=== PATIENT | male | born 1995 | race Caucasian/White ===

== ENCOUNTER 2022-06-19 17:02 | Emergency (ER) | payer OTHER ==
[~2022-06-19] VITALS: Ht 172.7 cm; Wt 95.3 kg
[~2022-06-19 17:02] MED LIST: MELO-174 PO; VITB12 PO
[2022-06-19 17:25] VITALS: BP 128/86
[2022-06-19] MEDS ORDERED: KETOROLAC 30 MG/ML VIAL IM ONE (17:55)
[2022-06-19] MEDS ORDERED: IBUP-2213 PO (18:31)
[2022-06-19] MEDS ORDERED: METH-1681 PO (18:31)
[2022-06-19 18:51] VITALS: BP 128/86
--- NOTE | 2022-06-19 18:51 | NUR ---
Patient discharged with v/s stable. Written and verbal after care instructions given and explained. Patient alert, oriented and verbalized understanding of instructions. Ambulatory with steady gait. All questions addressed prior to discharge. ID band removed. Patient advised to follow up with PMD. Rx of ROBAXIN given. Patient educated on indication of medication including possible reaction and side effects. Opportunity to ask questions provided and answered.
[2022-06-19] MEDS ORDERED: KETOROLAC 30 MG/ML VIAL ONE (19:25)
== END 2022-06-19 18:58 | disposition home or self-care (01) ==
LOC: MED 17:02
DX: M54.50 Low back pain, unspecified (principal)
CPT/HCPCS: 99283; J1885

== ENCOUNTER 2023-11-03 06:49 | Emergency (ER) | payer OTHER ==
[~2023-11-03] VITALS: Ht 172.7 cm; Wt 104.3 kg
[~2023-11-03 06:49] MED LIST changes: +IBUP-2213 PO; +METH-1681 PO
[2023-11-03 07:21] VITALS: PULSE 84; RESP 18; TEMP 98.3; O2SAT 98
[2023-11-03] MEDS ORDERED: CEPH-588 PO (08:19)
[2023-11-03] MEDS ORDERED: IBUP-2213 PO (08:19)
[2023-11-03] MEDS ORDERED: SULF-59 PO (08:19)
[2023-11-03 08:29] VITALS: BP 121/72; PULSE 77; O2SAT 97
== END 2023-11-03 08:29 | disposition home or self-care (01) ==
LOC: MED 06:49
DX: L03.115 Cellulitis of right lower limb (principal); Z79.899 Other long term (current) drug therapy
CPT/HCPCS: 99284

== ENCOUNTER 2023-11-05 10:50 | Emergency (ER) | payer OTHER ==
[~2023-11-05] VITALS: Ht 172.7 cm; Wt 104.3 kg
[~2023-11-05 10:50] MED LIST changes: +CEPH-588 PO; +SULF-59 PO
[2023-11-05 11:01] VITALS: BP 132/90; PULSE 90; RESP 18; TEMP 98.5; O2SAT 98
[2023-11-05] MEDS: KETOROLAC 30 MG/ML VIAL IVP ONE (11:55)
[2023-11-05 12:08] LABS: BASOPHILS % (AUTO) 0.3 % (0.0-2.0); EOSINOPHILS # (AUTO) 0.1 K/uL (0-0.4); HEMATOCRIT 40.7 % (36-52); MONOCYTES # (AUTO) 0.7 K/uL (0.8-1.0); RED BLOOD CELL COUNT(AUTO) 4.64 MIL/uL (4.20-6.10)
[2023-11-05 12:20] LABS: ANION GAP 14.1 (8-16); CARBON DIOXIDE 25.8 mmol/L (21-32); CREATININE 0.9 mg/dL (0.6-1.3); EOSINOPHILS % (AUTO) 0.8 % (0.0-4.0); HEMOGLOBIN 14.2 g/dL (12.0-18.0); LYMPHOCYTES # (AUTO) 1.6 K/uL (2.0-11.5); LYMPHOCYTES % (AUTO) 15.3 % (20.5-51.1); MEAN CORPUSCULAR HEMOGLOBIN 31 pg (27-31); MEAN CORPUSCULAR HGB CONC 35 g/dL (33-37); MEAN CORPUSCULAR VOLUME 87.6 fL (80-94); NEUTROPHILS % (AUTO) 76.6 % (42.2-75.2); PLATELET COUNT (AUTO) 192 K/uL (140-450); POTASSIUM 3.9 mmol/L (3.5-5.1); RED CELL DISTRIBUTION WIDTH 14.1 % (11.6-13.7); WHITE BLOOD COUNT (AUTO) 10.4 K/uL (4.8-10.8)
[2023-11-05 12:22] LABS: ALANINE AMINOTRANSFERASE 30 U/L (12-78); ALBUMIN 3.7 g/dL (3.4-5.0); ALKALINE PHOSPHATASE 84 U/L (50-136); ASPARTATE AMINOTRANSFERASE 19 U/L (15-37); BILIRUBIN,DIRECT 0.2 mg/dL (0.0-0.3); CREATINE KINASE, TOTAL 417 U/L (39-308); TOTAL BILIRUBIN 0.9 mg/dL (0.0-1.0); TOTAL PROTEIN, SERUM 7.2 g/dL (6.4-8.2)
[2023-11-05 12:24] LABS: LACTIC ACID 1.2 mmol/L (0.4-2.0)
[2023-11-05 12:27] LABS: CALCIUM 8.7 mg/dL (8.5-10.1)
[2023-11-05] MEDS: LEVOFLOXACIN 500 MG/D5W PREMIX 100 ML IV ONE (12:39)
[2023-11-05] MEDS ORDERED: VANCOMYCIN 1,000 MG VIAL ONE (12:57)
[2023-11-05] MEDS: VANCOMYCIN 1,000 MG in DEXTROSE 5% 250 ML IV ONE (13:09)
[2023-11-05] MEDS ORDERED: LEVO750T75 PO (13:42)
[2023-11-05] MEDS ORDERED: HYDR-5071 PO (13:42)
[2023-11-05 14:47] VITALS: BP 111/73; PULSE 77; RESP 18; TEMP 97.7; O2SAT 98
== END 2023-11-05 14:47 | disposition home or self-care (01) ==
LOC: MED 10:50
DX: L03.115 Cellulitis of right lower limb (principal); Z79.1 Long term (current) use of non-steroidal anti-inflammatories (NSAID); Z79.899 Other long term (current) drug therapy
CPT/HCPCS: 36415; 73590; 80048; 80076; 82550; 82553; 83605; 85025; 87040; 96365; 96366; 96368; 96375; 99285; J1885; J1956; J3370

== ENCOUNTER 2024-05-07 20:52 | Emergency (ER) | payer OTHER ==
[~2024-05-07] VITALS: Ht 172.7 cm; Wt 90.7 kg
[~2024-05-07 20:52] MED LIST changes: +HYDR-5071 PO; +LEVO750T75 PO
[2024-05-07 20:56] VITALS: BP 146/83; PULSE 49; RESP 16; TEMP 97.6; O2SAT 98
[2024-05-07 21:30] VITALS: TEMP 97.6
[2024-05-07] MEDS: NACL 0.9% 1,000 ML IV ONE (23:27)
[2024-05-07] MEDS: FAMOTIDINE 20 MG/2 ML VIAL IVP ONE (23:28)
[2024-05-07] MEDS: ONDANSETRON 4 MG/2 ML VIAL IVP ONE (23:28)
[2024-05-07 23:30] VITALS: BP 116/67; PULSE 55; RESP 16; O2SAT 98
[2024-05-07 23:31] LABS: EOSINOPHILS # (AUTO) 0.1 K/uL (0-0.4); EOSINOPHILS % (AUTO) 1.2 % (0.0-4.0); HEMATOCRIT 45.5 % (36-52); HEMOGLOBIN 15.6 g/dL (12.0-18.0); LYMPHOCYTES # (AUTO) 0.7 K/uL (2.0-11.5); MEAN CORPUSCULAR HEMOGLOBIN 31 pg (27-31); MEAN CORPUSCULAR HGB CONC 34 g/dL (33-37); MEAN CORPUSCULAR VOLUME 89.5 fL (80-94); MONOCYTES # (AUTO) 0.2 K/uL (0.8-1.0); MONOCYTES % (AUTO) 2.2 % (1.7-9.3); NEUTROPHILS # (AUTO) 8.1 K/uL (1.8-7.7); NEUTROPHILS % (AUTO) 88.6 % (42.2-75.2); PLATELET COUNT (AUTO) 227 K/uL (140-450); RED BLOOD CELL COUNT(AUTO) 5.09 MIL/uL (4.20-6.10); RED CELL DISTRIBUTION WIDTH 14.1 % (11.6-13.7); WHITE BLOOD COUNT (AUTO) 9.1 K/uL (4.8-10.8)
[2024-05-07 23:40] LABS: CALCIUM 8.8 mg/dL (8.5-10.1); CREATININE 0.8 mg/dL (0.6-1.3)
[2024-05-07 23:44] LABS: ALANINE AMINOTRANSFERASE 34 U/L (12-78); ALBUMIN 3.9 g/dL (3.4-5.0); ALKALINE PHOSPHATASE 101 U/L (50-136); ASPARTATE AMINOTRANSFERASE 21 U/L (15-37); BILIRUBIN,DIRECT 0.3 mg/dL (0.0-0.3); TOTAL BILIRUBIN 0.9 mg/dL (0.0-1.0); TOTAL PROTEIN, SERUM 7.4 g/dL (6.4-8.2)
[2024-05-08 01:56] LABS: ALCOHOL, BLOOD < 3 mg/dL (<10)
== END 2024-05-08 01:54 | disposition home or self-care (01) ==
LOC: MED 20:52
DX: F10.20 Alcohol dependence, uncomplicated (principal); R11.2 Nausea with vomiting, unspecified; Z79.899 Other long term (current) drug therapy; Y90.0 Blood alcohol level of less than 20 mg/100 ml
CPT/HCPCS: 36415; 80048; 80076; 85025; 96361; 96374; 96375; 99284; G0482; J2405; J3490; J7030